=== PATIENT | female | born 1990 | race Caucasian/White ===

== ENCOUNTER 2016-09-13 07:50 | Emergency (ER) | payer OTHER, BC ==
[~2016-09-13] VITALS: Ht 167.6 cm; Wt 54.4 kg
[~2016-09-13 07:50] MED LIST: CEPH500C PO
--- NOTE | 2016-09-13 09:41 | ED General ---
General Chief Complaint: Exposure Stated Complaint: GAVE RESPIRATIONS FOR C-DIFF POSTIVE PT Nursing Triage Note: PT STATES SHE GAVE RESCUE BREATHS TO A PATIENT AT THIS ALF AND LATER FOUND OUT THAT THE PT HAS BEEN POSITIVE FOR CDIFF. Nursing Sepsis Screen: No Definite Risk History of Present Illness Time Seen by Provider: 09:27 Initial Comments This patient presented to the ER because her work sent her to get checked out after giving [id number] CPR resuscitation without a barrier device to a patient with known C. difficile colitis. The patient is asymptomatic and without any open sores in her mouth. She has not received any antibiotics recently. She occasionally eats [place] yogurt. She does not have any pertinent medical history or immunocompromise. She is not on oral contraceptives pills or any kind of contraceptive method. She denies pain, upset stomach, nausea, vomiting, diarrhea, rash, fever, malaise. The exposure was this morning around 7 :00. The last PCP she saw was Dr. Perez who is no longer in practice. Allergies and Home Medications Allergies Coded Allergies: No Known Drug Allergies (Unverified , 01/19/11) Home Medications Cephalexin Monohydrate 500 Mg Capsule, 1 EACH PO TID, #20 Ref 0 Prescribed by: WAGNER CERDA on 01/20/11 0036 Chlorhexidine Gluconate 118 Ml Liquid, 118 ML TP DAILY for 7 Days, #1 Ref 1 Prescribed by: AIDE MOORE on 09/13/16 0948 Lactobacillus Combo No.11 1 Each Cap.sprink, 1 EACH PO BID for 14 Days, #28 Ref 0 Prescribed by: AIDE MOORE on 09/13/1648 Metronidazole 250 Mg Tablet, 125 MG PO QID for 10 Days, #20 Ref 0 Prescribed by: AIDE MOORE on 09/13/1648 Constitutional: see HPI, No chills, No diaphoresis, No fever EENTM: other (no lesions in the mouth. Bites checks as a chronic behavior), No mouth pain, No mouth swelling, No nose congestion, No throat swelling Respiratory: No short of breath, No wheezing Cardiovascular: No palpitations, No syncope Gastrointestinal: No abdominal pain, No constipation, No diarrhea, No jaundice , No nausea, No vomiting Genitourinary: No dysuria, No frequency Musculoskeletal: No back pain, No neck pain Skin: No pruritus, No rash Past Qtecdgt-Rxekuk-Eqjhto Hx Patient Social History Alcohol Use: Occasionally Uses Recreational Drug Use: No Smoking Status: Never a Smoker Recent Foreign Travel: No Contact w/Someone Who Travel: No Recent Infectious Disease Expo: No Recent Hopitalizations: No Seasonal Allergies Seasonal Allergies: No Surgeries HX Surgeries: No Respiratory Hx Respiratory Disorders: No Cardiovascular Hx Cardiac Disorders: No Neurological Hx Neurological Disorders: No Reproductive System Hx Reproductive Disorders: No Genitourinary Hx Genitourinary Disorders: No Gastrointestinal Hx Gastrointestinal Disorders: No Musculoskeletal Hx Musculoskeletal Disorders: No Endocrine Hx Endocrine Disorders: No HEENT HX ENT Disorders: No Cancer Hx Cancer: No Psychosocial Hx Psychiatric Problems: No Integumentary HX Skin/Integumentary Disorder: No Blood Transfusions Hx Blood Disorders: No Physical Exam Vital Signs Vital Sign - Last 12Hours 09/13/16 09/13/16 09:07 09:55 Temp 78.8 Pulse 60 Resp 18 B/P (MAP) 163/70 Pulse Ox 99 Capillary Refill : Less Than 3 Seconds General Appearance: No Apparent Distress, WD/WN Eyes: Bilateral Eye EOMI, Bilateral Eye Normal Inspection, Bilateral Eye PERRL HEENT: PERRL/EOMI, TMs Normal, Normal ENT Inspection, Pharynx Normal Neck: Full Range of Motion, Normal Inspection, Non Tender, Supple Respiratory: Lungs Clear, Normal Breath Sounds, No Respiratory Distress Cardiovascular: Regular Rate, Rhythm, No Edema, No Murmur, Normal Peripheral Pulses Gastrointestinal: Normal Bowel Sounds, No Organomegaly, Non Tender, Soft Neurologic/Psychiatric: Alert, Oriented x3, No Motor/Sensory Deficits Skin: Normal Color, Warm/Dry Progress/Results/Core Measures Results/Orders Vital Signs/I&O Vital Sign - Last 12Hours 09/13/16 09/13/16 09:07 09:55 Temp 78.8 Pulse 60 60 Resp 18 16 B/P (MAP) 163/70 Pulse Ox 99 Blood Pressure Mean: 101 Progress Note : Progress Note Address the patient's concerns and discussed how infectious C. difficile colitis occurs. She is not have any other risk factors such as recent antibiotic use, immunocompromise but she does eat [place] yogurt on occasion. I encouraged her to continue to use probiotics are [place] yogurt twice daily for the next week as well as there is some evidence that Hibiclens daily bathing or 3 times a week may decrease the incidence of C. difficile in patients at risk so we will pursue that for the next week. She does not have a PCP since her PCP retired and she has not been seen by anybody for about a year so we will send a prescription to the pharmacy for her to fill if she starts having gross watery or bleeding diarrhea. Explained to her that taking the antibiotics without symptoms may increase her risk for developing C. difficile colitis. She should follow-up with her work tomorrow. Today go home take a shower and change clothes and use the Hibiclens. All the patient's questions were answered to her satisfaction. Departure Impression Impression: Primary Impression: Exposure Qualified Codes: T75.89XA - Other specified effects of external causes, initial encounter Additional Impression: Diarrhea associated with pseudomembranous colitis Disposition: HOME, SELF-CARE Condition: Stable Departure-Patient Inst. Decision time for Depature: 09:36 Referrals: NO,LOCAL PHYSICIAN (PCP) Primary Care Physician Add. Discharge Instructions: You have been exposed to the secretions of a person with cluster infectious colitis. At this time it would be too early to notice any symptoms. However you should go home and bathes daily with Hibiclens wash for 1 week. No prophylactic antibiotics will be necessary however probiotics taken twice daily or repeat yogurt taken twice daily for 1-2 weeks will help reduce your risk for developing colitis with diarrheal disease. A prescription for Flagyl has been sent to your pharmacy. If he started noticing copious amounts of watery, bloody , purulent diarrhea accompanied with abdominal pain you should immediately start the Flagyl and then follow up with your primary care physician. If you did not have a primary care physician you should establish with one as soon as possible. Taking antibiotics without symptoms of diarrhea will increase your risk for developing an infection of your colon. Return to the ER or your PCP if you have new or worsening symptoms. All discharge instructions reviewed with patient and/or family. Voiced understanding. Scripts Lactobacillus Combo No.11 (Probiotic) 1 Each Cap.sprink 1 EACH PO BID for 14 Days, #28 CAP 0 Refills Prov: AIDE MOORE 09/13/16 Chlorhexidine Gluconate (Hibiclens) 118 Ml Liquid 118 ML TP DAILY for 7 Days, #1 EA 1 Refill Prov: AIDE MOORE 09/13/16 Metronidazole (Flagyl) 250 Mg Tablet 125 MG PO QID for 10 Days, #20 TAB 0 Refills Prov: AIDE MOORE 09/13/16 AIDE MOORE Sep 13, 2016 09:41
[2016-09-13] MEDS ORDERED: CHLO118L TP (09:48)
[2016-09-13] MEDS ORDERED: METR250T PO (09:48)
[2016-09-13] MEDS ORDERED: LACT1CAP64 PO (09:48)
[2016-09-13 09:55] VITALS: BP 150/85
--- OUTSIDE RECORDS SUMMARY | 2016-10-18 05:50 | XMS REPORT ---
Author MADHU [facility] eClinicalWorks Address Unknown Phone Unavailable Care Team Providers Care Bike Technician Name Role Phone MADHU RODRIGUEZ CP Unavailable Allergies No Known Allergies Problems Problem Type Condition Code Onset Dates Condition Status Assessment Encounter for immunization Z23 Active Medications No Known Medications Procedures Procedure Coding System Code Date SINGLE IMMUNIZATION ADMIN CPT-4 79100 Mar 14, 2015 FLUARIX QUAD (3 & UP)-GSK-2014 CPT-4 10990 Mar 14, 2015 Results No Known Results Immunizations Vaccine Administration Date FLUARIX QUAD (3 & UP)-GSK-2014Mar 14, 2015 Summary Purpose eClinicalWorks Submission
--- OUTSIDE RECORDS SUMMARY | 2016-10-18 05:50 | XMS REPORT ---
Author Author BRYAN FRANCE [facility] eClinicalWorks Address Unknown Phone Unavailable Care Team Providers Care Director Electrical Engineering Name Role Phone BRYAN FRANCE CP Unavailable Allergies, Adverse Reactions, Alerts Substance Reaction Event Type N.K.D.A. Info Not Available Non Drug Allergy Problems Problem Type Condition Code Onset Dates Condition Status Assessment Cystitis N30.90 Active Medications Medication Code System Code Instructions Start Date End Date Status Dosage Bactrim DS [facility] [address]-85 800-160 MG Orally Twice a day December 31, 2015 January 03, 2016 1 tablet Procedures Procedure Coding System Code Date URINE CULTURE/COLONY COUNT CPT-4 49416 December 31, 2015 Office Visit, New Pt., Level 2 CPT-4 62122 December 31, 2015 URINALYSIS, AUTO, W/O SCOPE CPT-4 63952 December 31, 2015 Vital Signs Date/Time: December 31, 2015 Cardiac Monitoring Heart Rate 70 bpm Weight 120 lbs Height 62 in BMI 21.95 Index Blood Pressure Diastolic 78 mmHg Blood Pressure Systolic 142 mmHg Results No Known Results Summary Purpose eClinicalWorks Submission
== END 2016-09-13 09:56 | disposition home or self-care (01) ==
LOC: EDUNIT# 07:50 → ER 07:53
DX: Z20.09 Contact with and (suspected) exposure to other intestinal infectious diseases (principal)
CPT/HCPCS: 99281

== ENCOUNTER 2018-01-05 21:17 | Emergency (ER) | payer BC ==
[~2018-01-05 21:17] MED LIST changes: +CHLO118L TP; +LACT1CAP64 PO; +METR250T PO
== END 2018-01-05 22:36 | disposition left against medical advice (07) ==
LOC: EDUNIT# 21:17 → ER 21:19
DX: M54.2 Cervicalgia (principal); V89.2XXA Person injured in unspecified motor-vehicle accident, traffic, initial encounter